=== PATIENT | female | born 1980 | race Caucasian/White ===

== ENCOUNTER 2017-05-20 10:24 | Emergency (ER) | payer SELFPAY ==
[~2017-05-20] VITALS: Ht 160 cm; Wt 41.0 kg
[2017-05-20] MEDS ORDERED: NO HOME MEDICATIONS (10:29)
[2017-05-20] MEDS ORDERED: [UNRECOGNIZED DRUG - REMARK] IV ONE ×4 (11:15)
[2017-05-20 11:49] LABS: BASOPHILS % 0.7 % (0.0-2.0); EOSINOPHILS % 0.1 % (0.0-5.0); HEMATOCRIT. 38.8 % (36.0-48.0); HEMOGLOBIN. 13.8 g/dL (12.0-16.0); LYMPHOCYTES % 15.8 % (20.0-50.0); MEAN CORPUSCULAR HEMOGLOBIN 31.8 pg (28.0-32.0); MEAN CORPUSCULAR VOLUME 89.2 fL (81.0-99.0); MEAN PLATELET VOLUME 7.5 fl (7.4-10.4); MONOCYTES % 5.4 % (2.0-8.0); PLATELET 339 x1000/uL (130-400); RED BLOOD CELL COUNT 4.35 mill/uL (4.2-5.4); RED CELL DISTRIBUTION WIDTH 12.6 % (11.6-14.6)
[2017-05-20 11:50] LABS: CARBON DIOXIDE 23 mEq/L (21-32); CHLORIDE 104 mEq/L (98-107)
[2017-05-20 11:52] LABS: PROTHROMBIN TIME 10.4 sec (9.4-11.6)
[2017-05-20 11:52] LABS: CLARITY URINE CLEAR (CLEAR); COLOR URINE YELLOW (YELLOW); GLUCOSE URINE NEGATIVE (NEGATIVE); KETONES URINE NEGATIVE (NEGATIVE); LEUKOCYTE ESTERASE URINE NEGATIVE (NEGATIVE); NITRITE URINE NEGATIVE (NEGATIVE); OCCULT BLOOD URINE NEGATIVE (NEGATIVE); PROTEIN URINE NEGATIVE (NEGATIVE); UROBILINOGEN URINE 0.2 E.U./dL (0.2-1.0)
[2017-05-20] MEDS: [UNRECOGNIZED DRUG - REMARK] IV NR ×3 (11:58)
[2017-05-20 12:01] LABS: ETHANOL BLOOD 342 mg/dL
[2017-05-20 12:10] LABS: *AMPHETAMINES SCREEN URINE NEGATIVE (NEGATIVE); *BARBITURATES SCREEN URINE NEGATIVE (NEGATIVE); *BENZODIAZEPINES SCREEN URINE NEGATIVE (NEGATIVE); *COCAINE SCREEN URINE NEGATIVE (NEGATIVE); METHADONE URINE SCREEN NEGATIVE (NEGATIVE); OPIATES URINE SCREEN NEGATIVE (NEGATIVE); PHENCYCLIDINE URINE SCREEN NEGATIVE (NEGATIVE)
[2017-05-20 12:35] LABS: CANNABINOID URINE SCREEN PRESUMTIVE POSITIVE (NEGATIVE)
[2017-05-20] MEDS: LORAZEPAM 2MG/ML CPJ IV ONE (12:35)
[2017-05-20] MEDS ORDERED: CHLORDIAZEPOXIDE 25MG CAPSULE PO ONE (16:30)
[2017-05-20 16:45] VITALS: BP 118/72
== END 2017-05-20 17:16 | disposition home or self-care (01) ==
LOC: ER 10:54
DX: T51.0X1A Toxic effect of ethanol, accidental (unintentional), initial encounter (principal); F10.229 Alcohol dependence with intoxication, unspecified; R40.4 Transient alteration of awareness; Y90.8 Blood alcohol level of 240 mg/100 ml or more; R03.0 Elevated blood-pressure reading, without diagnosis of hypertension; F12.10 Cannabis abuse, uncomplicated; Z78.1 Physical restraint status
CPT/HCPCS: 36415; 70450; 80053; 80305; 80307; 80329; 81003; 85025; 85610; 96365; 96366; 96375; 99285; G0482; J2060; J3411; J3490; J7070; Z7610; J7060

== ENCOUNTER 2017-05-20 19:16 | Emergency (ER) | payer SELFPAY ==
[~2017-05-20] VITALS: Ht 162.6 cm; Wt 60.0 kg
[~2017-05-20 19:16] MED LIST: NO HOME MEDICATIONS
[2017-05-20] MEDS ORDERED: SODIUM CHLORIDE 0.9% 1,000 ML IV ONE (22:37)
[2017-05-20] MEDS ORDERED: ONDANSETRON HCL 4MG/2ML VIAL IV STA (22:37)
[2017-05-20 23:26] LABS: CLARITY URINE CLEAR (CLEAR); COLOR URINE YELLOW (YELLOW); GLUCOSE URINE NEGATIVE (NEGATIVE); KETONES URINE NEGATIVE (NEGATIVE); LEUKOCYTE ESTERASE URINE NEGATIVE (NEGATIVE); NITRITE URINE NEGATIVE (NEGATIVE); OCCULT BLOOD URINE TRACE (NEGATIVE); PROTEIN URINE NEGATIVE (NEGATIVE); SPECIFIC GRAVITY URINE 1.009 (1.005-1.030); UROBILINOGEN URINE 0.2 E.U./dL (0.2-1.0)
[2017-05-20 23:38] LABS: *AMPHETAMINES SCREEN URINE NEGATIVE (NEGATIVE); *BARBITURATES SCREEN URINE NEGATIVE (NEGATIVE); *BENZODIAZEPINES SCREEN URINE NEGATIVE (NEGATIVE); *COCAINE SCREEN URINE NEGATIVE (NEGATIVE); METHADONE URINE SCREEN NEGATIVE (NEGATIVE); OPIATES URINE SCREEN NEGATIVE (NEGATIVE); PHENCYCLIDINE URINE SCREEN NEGATIVE (NEGATIVE)
[2017-05-20 23:41] LABS: PROTHROMBIN TIME 10.5 sec (9.4-11.6)
[2017-05-20 23:44] LABS: AMMONIA < 25 uMol/L (<32)
[2017-05-20 23:45] LABS: BASOPHILS % 0.9 % (0.0-2.0); EOSINOPHILS % 0.6 % (0.0-5.0); HEMATOCRIT. 38.8 % (36.0-48.0); HEMOGLOBIN. 13.5 g/dL (12.0-16.0); LYMPHOCYTES % 33.1 % (20.0-50.0); MEAN CORPUSCULAR VOLUME 89.4 fL (81.0-99.0); MEAN PLATELET VOLUME 7.5 fl (7.4-10.4); MONOCYTES % 6.9 % (2.0-8.0); NEUTROPHILS % 58.5 % (40.0-76.0); PLATELET 338 x1000/uL (130-400); RED BLOOD CELL COUNT 4.34 mill/uL (4.2-5.4); RED CELL DISTRIBUTION WIDTH 12.8 % (11.6-14.6)
[2017-05-20 23:46] LABS: CARBON DIOXIDE 25 mEq/L (21-32); CHLORIDE 106 mEq/L (98-107)
[2017-05-20 23:53] LABS: CANNABINOID URINE SCREEN PRESUMTIVE POSITIVE (NEGATIVE)
[2017-05-21 00:27] LABS: ETHANOL BLOOD 336 mg/dL
[2017-05-21 04:15] VITALS: BP 124/86
== END 2017-05-21 04:32 | disposition home or self-care (01) ==
LOC: ER 19:16
DX: F10.129 Alcohol abuse with intoxication, unspecified (principal); Y90.8 Blood alcohol level of 240 mg/100 ml or more
CPT/HCPCS: 36415; 70450; 71010; 80053; 80305; 81001; 81025; 82140; 83690; 85025; 85610; 86850; 86900; 86901; 93005; 96361; 96374; 99285; G0482; J2405; J7030; Z7610

== ENCOUNTER 2017-05-21 12:30 | Emergency (ER) | payer SELFPAY ==
[~2017-05-21] VITALS: Ht 160 cm; Wt 50.0 kg
[2017-05-21 13:05] VITALS: BP 127/85
[2017-05-21] MEDS ORDERED: SODIUM CHLORIDE 0.9% 1,000 ML IV ONE ×2 (13:23)
[2017-05-21] MEDS ORDERED: FOLIC ACID 1 MG, THIAMINE HCL 100 MG, MVI, ADULT NO.1 10 ML in DEXTROSE 5% WATER 1,000 ML IV ONE ×4 (13:30)
[2017-05-21 13:54] LABS: BASOPHILS % 0.8 % (0.0-2.0); EOSINOPHILS % 0.3 % (0.0-5.0); HEMATOCRIT. 39.9 % (36.0-48.0); HEMOGLOBIN. 13.8 g/dL (12.0-16.0); LYMPHOCYTES % 24.1 % (20.0-50.0); MEAN CORPUSCULAR VOLUME 89.7 fL (81.0-99.0); MEAN PLATELET VOLUME 7.3 fl (7.4-10.4); MONOCYTES % 5.6 % (2.0-8.0); NEUTROPHILS % 69.2 % (40.0-76.0); PLATELET 330 x1000/uL (130-400); RED BLOOD CELL COUNT 4.44 mill/uL (4.2-5.4); RED CELL DISTRIBUTION WIDTH 13.2 % (11.6-14.6)
[2017-05-21 14:08] LABS: CARBON DIOXIDE 26 mEq/L (21-32); CHLORIDE 108 mEq/L (98-107)
[2017-05-21 14:11] LABS: HCG SCREEN NEGATIVE
[2017-05-21 14:39] LABS: ETHANOL BLOOD 348 mg/dL
[2017-05-21] MEDS ORDERED: THIAMINE HCL 100 MG, MVI, ADULT NO.1 10 ML in DEXTROSE 5% WATER 1,000 ML IV SCH ×3 (15:00)
== END 2017-05-21 16:13 | disposition home or self-care (01) ==
LOC: ER 12:30 → CANBEDREQ 14:34 → ER 16:13
DX: F10.129 Alcohol abuse with intoxication, unspecified (principal); F12.10 Cannabis abuse, uncomplicated; Y90.8 Blood alcohol level of 240 mg/100 ml or more
CPT/HCPCS: 36415; 80053; 80307; 80329; 82962; 84703; 85025; 93005; 96360; 99285; G0482; J3411; J3490; J7070; Z7610; J7030